=== PATIENT | male | born 1990 | race Caucasian/White ===

== ENCOUNTER 2018-07-06 06:45 | Emergency (ER) | payer OTHER ==
[~2018-07-06] VITALS: Ht 165.1 cm; Wt 87.0 kg
[2018-07-06 06:48] VITALS: BP 163/84; PULSE 84; RESP 18; Ht 165.1 cm; Wt 87.0 kg
[2018-07-06] MEDS ORDERED: IBUP-1542 PO (07:18)
--- NOTE | 2018-07-06 08:06 | ERD ---
ER Documentation Chief Complaint Chief Complaint right hand numbness, woke up with this HPI 27-year-old male presenting with right hand numbness when he woke up. Patient is right-hand dominant. He works on computers. He states yesterday he had an allergic reaction which he was seen in urgent care for. He was placed on steroids and Benadryl. He he denies any recent injuries. He states that since waking up his numbness has improved. Denies other medical problems. NKDA. Surgical history denies. Social history denies ROS All systems reviewed and are negative except as per history of present illness. Medications Home Meds Active Scripts Ibuprofen* (Motrin*) 600 Mg Tab, 600 MG PO Q6, #30 TAB Prov:CIPRIANO KRAUSE PA-C 07/06/18 PMhx/Soc Medical and Surgical Hx: pt denies Medical Hx, pt denies Surgical Hx Hx Alcohol Use: No Hx Substance Use: No Hx Tobacco Use: No Smoking Status: Never smoker FmHx Family History: No diabetes, No coronary disease, No other Physical Exam Vitals Vital Signs Date Temp Pulse Resp B/P (MAP) Pulse Ox O2 O2 Flow FiO2 Time Delivery Rate 07/06/18 98.1 84 18 163/84 99 06:48 (110) Physical Exam GENERAL: The patient is well-appearing, well-nourished, in no acute distress CHEST: Clear to auscultation bilaterally. There are no rales, wheezes or rhonchi. HEART: Regular rate and rhythm. No murmurs, clicks, rubs or gallops. EXTREMITIES: Equal pulses bilaterally. There is no peripheral clubbing, cya nosis or edema. No focal swelling or erythema. Full range of motion. Grossly neurovascularly intact. NEUROLOGIC: Alert and oriented. Cranial nerves II through XII intact. Motor strength in all 4 extremities with 5 out of 5 strength. Sensation grossly intact. Normal speech and gait. SKIN: There is no apparent rash or petechiae. The skin is warm and dry. Procedures/MDM MDM: 27-year-old male presenting with normal range of motion of the right hand. I have low suspicion for neuro deficit or vascular insufficiency. I have low suspicion for tendon or ligament rupture. I have low suspicion for acute fract ure dislocation. Patient is discharged with strict ER precautions and told to follow-up with primary care within 1 to 2 days for close evaluation. I believe patient may have carpal tunnel component of mild swelling secondary to his recent allergic reaction. I do not feel blood work or imaging is indicated. Patient is discharged with strict ER precautions. All questions answered at discharge Departure Diagnosis: Primary Impression: Hand paresthesia Condition: Stable Patient Instructions: Paraesthesias Additional Instructions: FOLLOW UP WITH YOUR PRIMARY CARE PHYSICIAN TOMORROW.Return to this facility if you are not improving as expected. CIPRIANO KRAUSE PA-C July 06, 2018 08:06
== END 2018-07-06 07:30 | disposition home or self-care (01) ==
LOC: FTE 06:45
DX: R20.2 Paresthesia of skin (principal)
CPT/HCPCS: 99282